=== PATIENT | female | born 1955 | race Caucasian/White ===

== ENCOUNTER 2017-10-05 16:31 | Emergency (ER) | payer BC ==
[2017-10-05 17:40] VITALS: BP 144/49
[2017-10-05] MEDS ORDERED: diPHENhydraMINE PO* 25 MG PO ONE (17:58)
[2017-10-05] MEDS ORDERED: methylPREDNISolone 125 MG* 2 ML VIAL IM ONE (17:58)
--- NOTE | 2017-10-05 18:04 | UC ---
Skin Complaint HPI - HPI Summary HPI Summary: Onset of hives today without apparent trigger: no new foods, products or meds. Took 50mg of benadryl with some relief, but hives recurred and she comes for treatment. Has remote history of urticaria, several decades ago. No enivironmental allergies. - History of Current Complaint Chief Complaint: UCRash Time Seen by Provider: 10/05/17 17:48 Stated Complaint: RASH Hx Obtained From: Patient Hx Last Menstrual Period: ~4 yrs Onset/Duration: Sudden Onset, Lasting Hours - 6 Timing: Constant Onset Severity: Moderate Current Severity: Moderate Location: Diffuse Aggravating Factor(s): Nothing Alleviating Factor(s): Antihistamines Associated Signs & Symptoms: Positive: Rash - Allergy/Home Medications Allergies/Adverse Reactions: Allergies Allergy/AdvReac Type Severity Reaction Status Date / Time prescribed cold remedy Allergy Rash Uncoded 10/05/17 17:34 Home Medications: Home Medications Butalb/Acetamin/Caff TAB* [Fioricet TAB*] 1 - 2 tab PO Q4H PRN 10/05/17 [ History Confirmed 10/05/17] Furosemide TAB* [Lasix TAB*] 20 mg PO DAILY 10/05/17 [History Confirmed 10/05/17 ] Lisinopril/HCTZ 20/25(NF) [Zestoretic 20/25(NF)] 1 tab PO QAM 10/05/17 [History Confirmed 10/05/17] Omeprazole CAP* [Prilosec CAP* 20 MG] 40 mg PO BID 10/05/17 [History Confirmed 10/05/17] diPHENhydraMINE PO* [Benadryl PO 25 MG TAB*] 25 - 50 mg PO Q6H PRN 10/05/17 [ History Confirmed 10/05/17] Review of Systems Constitutional: Fatigue, Other - no recent illnesses. Skin: Other - urticaria Eyes: Negative ENT: Negative Respiratory: Negative Cardiovascular: Other - treated hypertension; no shortness of breath or chest pain. Gastrointestinal: Negative Genitourinary: Negative Motor: Negative Neurovascular: Negative Musculoskeletal: Negative Neurological: Negative Psychological: Negative Is Patient Immunocompromised?: No All Other Systems Reviewed And Are Negative: Yes PMH/Surg Hx/FS Hx/Imm Hx Previously Healthy: No Cardiovascular History: Hypertension GI/ History: Gastroesophageal Reflux - Surgical History Surgical History: Yes Surgery Procedure, Year, and Place: Cholecystectomy, Tubal Ligation, Tonsillectomy - Family History Known Family History: Positive: Cardiac Disease - father of heart disease - Social History Occupation: Retired Lives: With Family Alcohol Use: Rare Substance Use Type: None Smoking Status (MU): Heavy Every Day Tobacco Smoker Type: Cigarettes Amount Used/How Often: 1 1/2 PPD Length of Time of Smoking/Using Tobacco: Since Age 31 Cessation Counseling: Patient Advised to Stop - Immunization History Most Recent Influenza Vaccination: Not the Season Physical Exam Triage Information Reviewed: Yes Appearance: Well-Appearing, Obese, Other: - uncomfortable due to itching. Vital Signs: Initial Vital Signs Temp 97.6 F 10/05/17 17:30 Pulse 124 10/05/17 17:30 Resp 16 10/05/17 17:30 BP 144/49 10/05/17 17:30 Pulse Ox 98 10/05/17 17:30 Vital Signs Reviewed: Yes Eyes: Positive: Conjunctiva Clear, Other: - right upper lid swelling. ENT: Positive: Pharynx normal, Other - no tongue swelling. Neck: Positive: Supple, Nontender, No Lymphadenopathy Respiratory: Positive: Lungs clear, Normal breath sounds Cardiovascular: Positive: RRR, No Murmur, Tachycardia Psychological Exam: Normal Skin Exam: Other - diffuse urticaria over the trunk, neck, limbs. Re-Evaluation - Re-Evaluation First Eval Re-Evaluation Time: 16:35 - mild decrease in pruritus, still + urticaria Change: Unchanged Course/Dx - Course Course Of Treatment: solumedrol given --oral steroids, long acting antihistamine , benadryl. - Differential Diagnoses - Skin Complaint Differential Diagnoses: Anaphylaxis, Angioedema, Urticaria - Diagnoses Provider Diagnoses: generalized urticaria Discharge - Discharge Plan Condition: Stable Disposition: HOME Prescriptions: Prednisone 2 tab PO DAILY #10 tab Patient Education Materials: Urticaria (ED) Referrals: Deacon Campo MD [Primary Care Provider] - Additional Instructions: Tomorrow, begin use of prednisone 40mg once daily to decrease the reaction. Take with food. Side effects can include gi upset; continue your omeprazole. Begin the use of a long acting antihistamine daily for the next 2 to 3 weeks; I suggest either Zyrtec (cetirazine) 10mg once daily OR Anabela (fexofenadine) 180mg once daily. CONTNUE benadryl 25mg every 6 hours as needed. A warm oatmeal bath followed by applying a good skin moisturizer can help. Follow up with your primary doctor if your symptoms are not improving, but this can take up to 2 weeks to resolve once triggered.
== END 2017-10-05 18:50 | disposition home or self-care (01) ==
LOC: UCCORT 16:31
DX: L50.9 Urticaria, unspecified (principal); I10 Essential (primary) hypertension; F17.210 Nicotine dependence, cigarettes, uncomplicated; K21.9 Gastro-esophageal reflux disease without esophagitis; Z88.8 Allergy status to other drugs, medicaments and biological substances
CPT/HCPCS: 96372; 99212; A9270-GY; G0463; J2930